=== PATIENT | female | born 1955 ===

== ENCOUNTER 2019-02-13 14:30 | Emergency (ER) | payer BC, MEDICAID, OTHER ==
[2019-02-13 14:31] VITALS: BMI 21.7
[2019-02-13] MEDS ORDERED: Sodium Chloride 0.9% 1,000 ML IV ONE ×3 (16:24→19:04)
--- NOTE | 2019-02-13 16:47 | C.PDOC ---
History Of Present Illness 63 year old female with PMHx of diabetes presents to the ED complaining of ulcer to the left big toe. Reports it started as a sore spot on the bottom of the left big toe and then developed into an ulcer. States toe is painful and swollen. Denies neuropathy. Also reports she woke up this morning with headache, body aches, and chills. States she does not check her sugar daily but when she checked today it was higher than usual. Denies any other physical complaints. Time Seen by Provider: 02/13/19 15:42 Chief Complaint (Nursing): Dizziness/Lightheaded History Per: Patient History/Exam Limitations: no limitations Onset/Duration Of Symptoms: Days Current Symptoms Are (Timing): Still Present Past Medical History Reviewed: Historical Data, Nursing Documentation, Vital Signs Vital Signs: Last Vital Signs Temp 98.0 F 02/13/19 14:33 Pulse 73 02/13/19 14:33 Resp 20 02/13/19 14:33 BP 117/71 02/13/19 14:33 Pulse Ox 99 02/13/19 14:33 - Medical History PMH: Arthritis, Diabetes, HTN, Hypercholesterolemia Denies: HIV Surgical History: Carotid Endarterectomy - [facility] (09/18/18) INTRODUCTION OF SERUM/TOX/VACCINE INTO MUSCLE, PERC APPROACH (09/18/18) Family History: States: No Known Family Hx - Social History Hx Tobacco Use: No Hx Alcohol Use: No Hx Substance Use: No - Immunization History Hx Tetanus Toxoid Vaccination: No Hx Influenza Vaccination: Yes Hx Pneumococcal Vaccination: No Review Of Systems Constitutional: Positive for: Chills, Other (bodyaches ). Negative for: Fever ENT: Negative for: Nose Congestion, Throat Pain Respiratory: Negative for: Cough, Shortness of Breath Gastrointestinal: Negative for: Nausea, Vomiting, Abdominal Pain, Diarrhea Skin: Positive for: Other (ulcer to left big toe ) Neurological: Positive for: Headache Physical Exam - Physical Exam Appears: Non-toxic, No Acute Distress Skin: Warm, Dry, No Rash Head: Normacephalic Eye(s): bilateral: Normal Inspection Nose: Normal Oral Mucosa: Moist Neck: Supple Chest: Symmetrical Cardiovascular: Rhythm Regular, No Murmur Respiratory: Normal Breath Sounds, No Rales, No Rhonchi, No Wheezing Gastrointestinal/Abdominal: Soft, No Tenderness Extremity: Normal ROM, Other (Swelling and redness to the left big toe with serous drainage, no foul odor ) Neurological/Psych: Oriented x3, Normal Speech ED Course And Treatment - Laboratory Results Result Diagrams: 02/13/19 16:53 02/13/19 16:53 Lab Interpretation: Abnormal (glucose 334, BUN 21) O2 Sat by Pulse Oximetry: 99 (RA) Pulse Ox Interpretation: Normal - Other Rad left foot XR X-Ray: Viewed By Me, Read By Radiologist Interpretation: Accession No. : [id number]. Patient Name / ID : CAMELIA LANDA / [id number]. Exam Date : 02/13/2019 16:45:51 ( Approved ). Study Comment : Sex / Age : F / 63Y. Creator : Lisa Ureña MD. Dictator : Lisa Ureña MD. Corporate Ethics Officer : Manager Net : Lisa Ureña MD. Approver2 : Report Date : 02/13/2019 17:04:11. My Comment : . PROCEDURE: Radiographs of the left great toe. TECHNIQUE:: AP radiograph of the left foot, with oblique and lateral view of the left great toe. 3 view obtained. COMPARISON: 12/02/2013. 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 There is no acute displaced fracture or bone destruction. Bone alignment is normal. JOINTS: Normal. SOFT TISSUES: There is mild soft tissue swelling in the great toe. OTHER FINDINGS: None. IMPRESSION: No acute fracture or bone destruction. Soft tissue swelling of the great toe. Reevaluation Time: 19:42 Reassessment Condition: Improved (glucose better after IV fluids) Medical Decision Making Medical Decision Making: Plan - Bloodwork - IV fluids - XR left foot - Glucose POC Disposition Counseled Patient/Family Regarding: Studies Performed, Diagnosis, Need For Followup, Rx Given - Disposition Referrals: Lianet Garcia MD [[facility]] - Podiatry Clinic [Outside] Disposition: HOME/ ROUTINE Disposition Time: 19:43 Condition: STABLE Prescriptions: Cephalexin [cephalexin] 500 mg PO TID #21 cap Silver Sulfadiazine 1% 20 gm [Silvadene 1% 20 gm] 1 ea TOP DAILY #1 tube Forms: [facility] [employer] (Ugandan) - Clinical Impression Clinical Impression: Open wound of toe, Uncontrolled diabetes mellitus, Cellulitis of toe of left foot - Scribe Statement The provider has reviewed the documentation as recorded by the Raibnatalie Huntley All medical record entries made by the Raibnatalie were at my direction and personally dictated by me. I have reviewed the chart and agree that the record accurately reflects my personal performance of the history, physical exam, medical decision making, and the department course for this patient. I have also personally directed, reviewed, and agree with the discharge instructions and disposition.
[2019-02-13 17:00] LABS: BASO # 0.1 K/uL (0.0-0.2); BASO % 1.1 % (0.0-2.0); EOS # 0.2 K/uL (0.0-0.7); HEMOGLOBIN 13.1 g/dL (11.0-16.0); LYMPH # 2.4 K/uL (1.0-4.3); MEAN CORPUSCULAR HEMOGLOBIN 31.4 pg (27.0-31.0); MEAN CORPUSCULAR HGB CONC 33.7 g/dL (33.0-37.0); MEAN PLATELET VOLUME 8.9 fL (7.2-11.7); MONO # 0.6 K/uL (0.0-0.8); MONO % 6.6 % (0.0-10.0); NEUT # 5.7 K/uL (1.8-7.0); NEUT % 63.3 % (50.0-75.0); NRBC % 0.1 % (0.0-2.0); RBC 4.18 Mil/uL (3.80-5.20); RED CELL DISTRIBUTION WIDTH 13.8 % (11.5-14.5)
--- NOTE | 2019-02-13 17:07 | RAD ---
PROCEDURE: Radiographs of the left great toe. TECHNIQUE:: AP radiograph of the left foot, with oblique and lateral view of the left great toe. 3 view obtained. COMPARISON: 12/02/2013. 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 There is no acute displaced fracture or bone destruction. Bone alignment is normal. JOINTS: Normal. SOFT TISSUES: There is mild soft tissue swelling in the great toe. OTHER FINDINGS: None. IMPRESSION: No acute fracture or bone destruction. Soft tissue swelling of the great toe.
[2019-02-13 17:16] LABS: ALB/GLOB RATIO 1.6 (1.0-2.1); ALBUMIN 4.4 g/dL (3.5-5.0); BLOOD UREA NITROGEN 21 mg/dL (7-17); CALCIUM 9.4 mg/dl (8.6-10.4); GFR NON-AFRICAN AMERICAN > 60
[2019-02-13 17:21] LABS: ALT/SGPT 17 U/L (9-52); AST/SGOT 39 U/L (14-36)
[2019-02-13] MEDS ORDERED: Sodium Chloride 0.9% 1,000 ML ONE (19:15)
[2019-02-13 20:33] VITALS: BP 136/78; PULSE 72; RESP 16; TEMP 98.5; O2SAT 100
== END 2019-02-13 20:41 | disposition home or self-care (01) ==
LOC: C.ER 14:30
DX: S91.102A Unspecified open wound of left great toe without damage to nail, initial encounter (principal); L03.032 Cellulitis of left toe; X58.XXXA Exposure to other specified factors, initial encounter; E11.65 Type 2 diabetes mellitus with hyperglycemia
CPT/HCPCS: 73660; 80053; 82948; 85025; 96360; 96361; 99285; J7030